=== PATIENT | male | born 1980 | race Caucasian/White ===

== ENCOUNTER 2020-03-20 19:37 | Emergency (ER) | payer BC ==
[~2020-03-20] VITALS: Ht 165.1 cm; Wt 137.0 kg
[2020-03-20 20:48] LABS: BASOPHILS % 0.7 % (0.0-2.0); EOSINOPHILS % 1.6 % (0.0-5.0); HEMATOCRIT. 42.3 % (42.0-52.0); HEMOGLOBIN. 14.1 g/dL (14.0-18.0); LYMPHOCYTES % 20.7 % (20.0-50.0); MEAN CORPUSCULAR HEMOGLOBIN 28.6 pg (28.0-32.0); MEAN CORPUSCULAR VOLUME 85.5 fL (80.0-94.0); MEAN PLATELET VOLUME 9.3 fl (7.4-10.4); MONOCYTES % 7.8 % (2.0-8.0); NEUTROPHILS % 69.2 % (40.0-76.0); PLATELET 148 x1000/uL (130-400); RED BLOOD CELL COUNT 4.95 mill/uL (4.7-6.1); RED CELL DISTRIBUTION WIDTH 13.8 % (11.6-14.6)
[2020-03-20 20:53] LABS: CHLORIDE 104 mEq/L (98-107)
[2020-03-20 21:48] LABS: CLARITY URINE CLEAR (CLEAR); COLOR URINE YELLOW (YELLOW); KETONES URINE NEGATIVE (NEGATIVE); LEUKOCYTE ESTERASE URINE NEGATIVE (NEGATIVE); NITRITE URINE NEGATIVE (NEGATIVE); OCCULT BLOOD URINE NEGATIVE (NEGATIVE); PROTEIN URINE 3+ (NEGATIVE); SPECIFIC GRAVITY URINE 1.018 (1.005-1.030)
[2020-03-20] MEDS ORDERED: KETOROLAC 30MG/ML VIAL IM ONE (22:00)
[2020-03-20 23:15] VITALS: BP 141/85
== END 2020-03-20 23:15 | disposition home or self-care (01) ==
LOC: ER 19:37 → EDBD 19:37 → ER 23:15
DX: R33.9 Retention of urine, unspecified (principal)
CPT/HCPCS: 36415; 51702; 80053; 81003; 85025; 96372; 99284; J1885

== ENCOUNTER 2023-10-05 22:50 | Emergency (ER) | payer BC, OTHER ==
[~2023-10-05] VITALS: Ht 165.1 cm; Wt 123.0 kg
[2023-10-05 23:10] VITALS: TEMP 98.2; O2SAT 96
[2023-10-06] MEDS: HYDROCODONE/ACETAMINOPHEN 5/325MG TABLET PO ONE (00:58)
[2023-10-06] MEDS ORDERED: HYDR-4001 MT (01:12)
[2023-10-06] MEDS ORDERED: CEPH500C2 MT (01:12)
[2023-10-06 02:05] VITALS: BP 148/104; PULSE 74; RESP 15
== END 2023-10-06 02:05 | disposition home or self-care (01) ==
LOC: ER 22:50
DX: Z48.00 Encounter for change or removal of nonsurgical wound dressing (principal)
CPT/HCPCS: 99283; Z7610

== ENCOUNTER 2024-03-11 19:48 | Emergency (ER) | payer OTHER ==
[~2024-03-11] VITALS: Ht 167.6 cm; Wt 121.4 kg
[~2024-03-11 19:48] MED LIST: CEPH500C2 MT; HYDR-4001 MT
[2024-03-11 20:13] VITALS: O2SAT 98
[2024-03-11] MEDS ORDERED: OFLO5DRO4 RIGHT EAR (20:38)
[2024-03-11] MEDS ORDERED: IBUP-2029 MT (20:38)
[2024-03-11] MEDS: IBUPROFEN 600MG TABLET PO ONE (20:45)
[2024-03-11 21:03] VITALS: BP 122/66; PULSE 75; RESP 18; TEMP 36.72516; O2SAT 99
== END 2024-03-11 21:03 | disposition home or self-care (01) ==
LOC: ER 19:48
DX: T16.1XXA Foreign body in right ear, initial encounter (principal); Z79.899 Other long term (current) drug therapy; X58.XXXA Exposure to other specified factors, initial encounter; Y93.89 Activity, other specified; Y92.89 Other specified places as the place of occurrence of the external cause; Y99.8 Other external cause status
CPT/HCPCS: 99283; Z7610